=== PATIENT | male | born 1975 | race Caucasian/White ===

== ENCOUNTER → 2016-11-29 | Outpatient (CLI) | payer OTHER ==
--- NOTE | 2016-11-29 13:16 | DI ---
History: Scaphoid fracture followup. Prior examinations: Multiple, most recent 10/29/16. Procedure: Three-view study. Findings: The scaphoid fracture is now difficult to discern owing to healing across the fracture plan e. There is slight discontinuity of the trabecular bone. The cortical bone appears to be properly ali gned. Some overall bone mineral loss, consistent with posttraumatic condition. Impression: Satisfactory healing of the scaphoid fracture left upper extremity
== END ==
LOC: ORTHO 10:24
PROVIDERS: ATTEND Orthopaedic Surgery
DX: S62.025G Nondisplaced fracture of middle third of navicular [scaphoid] bone of left wrist, subsequent encounter for fracture with delayed healing (principal)
CPT/HCPCS: 73110